=== PATIENT | female | born 1980 ===

== ENCOUNTER 2024-08-30 14:02 | Inpatient (IN) | payer OTHER ==
[~2024-08-30] VITALS: Ht 160 cm; Wt 82.7 kg
[2024-08-30 15:14] LABS: BASOPHILS % (AUTO) 0 % (0-1); EOSINOPHILS % (AUTO) 0.2 % (0-6); HEMATOCRIT 44.3 % (35.0-45.0); HEMOGLOBIN 15.3 g/dl (12.0-16.0); LYMPHOCYTES # (AUTO) 1.1 X10'3 (1.1-4.8); LYMPHOCYTES % (AUTO) 7.1 % (21-51); MEAN CORPUSCULAR HEMOGLOBIN 30.1 PG (27.0-31.0); MEAN CORPUSCULAR HGB CONC 34.6 g/dL (33.0-36.5); MEAN CORPUSCULAR VOLUME 86.8 FL (78-98); MONOCYTES # (AUTO) 0.8 X10'3 (0-0.9); MONOCYTES % (AUTO) 5.2 % (2-12); NEUTROPHILS # (AUTO) 13.7 X10'3 (1.8-7.7); NEUTROPHILS % (AUTO) 87.5 % (42-75); PLATELET COUNT 376 X10'3 (140-440); RED CELL DISTRIBUTION WIDTH 17.1 % (11.5-14.5); WHITE BLOOD COUNT 15.7 X10'3 (4.5-11.0)
[2024-08-30 15:24] LABS: ALANINE AMINOTRANSFERASE 8 U/L (12-78); ALBUMIN 2.6 G/DL (3.4-5.0); ALBUMIN/GLOBULIN RATIO 0.5 (1.1-1.5); ALKALINE PHOSPHATASE 80 IU/L (46-116); ANION GAP 10 (8-16); ASPARTATE AMINO TRANSFERASE 10 U/L (10-37); BILIRUBIN,TOTAL 0.7 MG/DL (0.1-1.0); BLOOD UREA NITROGEN 25 MG/DL (7-18); BUN/CREATININE RATIO 27.5 (10.0-20.0); CALCIUM 9.7 MG/DL (8.5-10.1); CHLORIDE 89 MMOL/L (99-107); CREATININE 0.91 MG/DL (0.40-0.90); GLUCOSE 94 MG/DL (70-104); LIPASE 31 U/L (16-77); POTASSIUM 3.2 MMOL/L (3.5-5.1); SODIUM 124 MMOL/L (135-145); TOTAL CARBON DIOXIDE 25.4 MMOL/L (24-32); TOTAL PROTEIN 7.7 G/DL (6.4-8.2); eCRCL 66 ML/MIN; eGFR 67 ML/MIN
[2024-08-30] MEDS: polyethylene glycol 3350 17gm powd pack PO STA (15:40)
[2024-08-30] MEDS: sennosides/docusate sodium tablet PO STA (15:41)
[2024-08-30] MEDS: ondansetron/PF 4mg/2ml inj IV STA (15:43)
[2024-08-30 16:04] LABS: ANISOCYTOSIS 1+; PLATELET ESTIMATE NORMAL
[2024-08-30] MEDS ORDERED: iohexol 300mg/ml 100ml inj. ONE (16:05)
[2024-08-30 16:06] LABS: SCHISTOCYTES FEW
[2024-08-30 16:07] LABS: LARGE PLATELETS FEW
[2024-08-30 16:35] LABS: URINE HCG NEGATIVE (NEG)
[2024-08-30 16:44] LABS: BILIRUBIN,URINE SMALL (Neg); CLARITY,URINE CLEAR (Clear); COLOR,URINE YELLOW (Yellow); GLUCOSE, URINE NEGATIVE (Neg); KETONES,URINE >=80 mg/dl (Neg); LEUKOCYTE ESTERASE ,URINE NEGATIVE (Neg); NITRITES, URINE NEGATIVE (Neg); OCCULT BLOOD,URINE LARGE (Neg); PH,URINE 6.5 (4.8-8.0); PROTEIN,URINE 30 mg/dl (Neg)
[2024-08-30 16:45] LABS: UA COLLECTION TYPE CLN CATCH MIDSTREAM
[2024-08-30 17:01] LABS: WBC,URINE 0-4 /HPF (0-4)
[2024-08-30 17:02] LABS: BACTERIA,URINE 1+ /HPF (Neg); MUCUS STRANDS FEW /LPF (Neg); SQUAMOUS EPITHELIAL CELL,UR MANY /LPF (FEW); TRANSITIONAL EPI CELLS,URINE FEW /HPF
[2024-08-30 17:03] LABS: WAXY CASTS,URINE 0-3 /LPF (NEGATIVE)
[2024-08-30 17:04] LABS: RENAL CELLS, URINE MOD /HPF
[2024-08-30] MEDS: morphine 4 MG/ML inj SYRINge IV STA (18:52)
[2024-08-30] MEDS: piperacillin/tazo 3.375gm/50ml 50 ML IV SCH (18:53)
[2024-08-30] MEDS: normal saline 1000ml 1,000 ML IV STA (19:34)
[2024-08-30] MEDS ORDERED: magnesium Cl slow-release 64mg tablet PO PRN (20:00)
[2024-08-30] MEDS ORDERED: magnesium sulf-water 2g/50mL 50 ML IV PRN (20:00)
[2024-08-30] MEDS ORDERED: mag hydrox/Alum hydrox/simeth 30ml oral suspension PO PRN (20:00)
[2024-08-30] MEDS: K and/or MAG REPLACEMENT MC SCH (20:00)
[2024-08-30] MEDS: docusate sod 100mg capsule PO SCH (20:00)
[2024-08-30] MEDS ORDERED: magnesium hydroxide 30ml (MOM) UD suspension PO PRN (20:00)
[2024-08-30] MEDS ORDERED: potassium Cl 20 mEq SR tablet PO PRN (20:00)
[2024-08-30] MEDS ORDERED: morphine 2 MG/ML inj. syringe IV PRN (20:00)
[2024-08-30] MEDS ORDERED: acetaminophen 325mg tablet PO PRN (20:00)
[2024-08-30] MEDS ORDERED: magnesium sulf-water 4G/100mL 100 ML IV PRN (20:00)
[2024-08-30 20:42] LABS: HEMOGLOBIN A1C 4.8 % (4.5-6.2)
[2024-08-30] MEDS: potassium Cl 20 mEq SR tablet PO PRN (20:57)
[2024-08-30] MEDS: normal saline 1000ml 1,000 ML IV SCH (21:01)
[2024-08-30] MEDS: ondansetron/PF 4mg/2ml inj IV PRN (21:46)
[2024-08-31] VITALS (25 sets, daily range): BP systolic 105–133; BP diastolic 60–95; PULSE 82–139; RESP 13–31; TEMP 97.6–98.7; O2SAT 90–100
[2024-08-31] MEDS ORDERED: piperacillin/tazo 3.375gm/50ml 50 ML IV SCH
[2024-08-31] MEDS: normal saline 1000ml 1,000 ML IV STA (02:01)
[2024-08-31] MEDS: morphine 2 MG/ML inj. syringe IV PRN ×2 (02:02→12:01)
[2024-08-31 02:44] LABS: BASOPHILS % (AUTO) 0.1 % (0-1); EOSINOPHILS % (AUTO) 0.2 % (0-6); HEMATOCRIT 40.3 % (35.0-45.0); HEMOGLOBIN 14.1 g/dl (12.0-16.0); LYMPHOCYTES # (AUTO) 0.7 X10'3 (1.1-4.8); LYMPHOCYTES % (AUTO) 6.4 % (21-51); MEAN CORPUSCULAR HEMOGLOBIN 30.8 PG (27.0-31.0); MEAN PLATELET VOLUME 7.9 FL (7.4-10.4); MONOCYTES # (AUTO) 0.8 X10'3 (0-0.9); MONOCYTES % (AUTO) 7.5 % (2-12); NEUTROPHILS # (AUTO) 9.2 X10'3 (1.8-7.7); NEUTROPHILS % (AUTO) 85.8 % (42-75); PLATELET COUNT 364 X10'3 (140-440); RED BLOOD COUNT 4.58 X10'6 (4.20-5.60); RED CELL DISTRIBUTION WIDTH 16.7 % (11.5-14.5); WHITE BLOOD COUNT 10.7 X10'3 (4.5-11.0)
[2024-08-31 02:56] LABS: ALBUMIN 2.1 G/DL (3.4-5.0); ANION GAP 10 (8-16); BLOOD UREA NITROGEN 21 MG/DL (7-18); BUN/CREATININE RATIO 23.9 (10.0-20.0); CALCIUM 8.3 MG/DL (8.5-10.1); CHLORIDE 95 MMOL/L (99-107); CHOL/HDL RATIO 6.6 (0.00-4.99); CHOLESTEROL 186 MG/DL (0-200); CREATININE 0.88 MG/DL (0.40-0.90); GLUCOSE 98 MG/DL (70-104); HDL CHOLESTEROL 28 MG/DL (35-60); LDL CHOLESTEROL 121 MG/DL (50-100); MAGNESIUM 2.7 MG/DL (1.5-2.4); POTASSIUM 3.3 MMOL/L (3.5-5.1); SODIUM 128 MMOL/L (135-145); TOTAL CARBON DIOXIDE 22.9 MMOL/L (24-32); TRIGLYCERIDES 181 MG/DL (20-135); eCRCL 68 ML/MIN; eGFR 70 ML/MIN
[2024-08-31] MEDS ORDERED: magnesium Cl slow-release 64mg tablet PO PRN (03:25)
[2024-08-31] MEDS ORDERED: potassium Cl 20 mEq SR tablet PO PRN ×2 (03:25)
[2024-08-31] MEDS ORDERED: magnesium sulf-water 2g/50mL 50 ML IV PRN (03:25)
[2024-08-31] MEDS ORDERED: magnesium sulf-water 4G/100mL 100 ML IV PRN (03:25)
[2024-08-31] MEDS: potassium Cl 40MEQ/1/2NS 520ml 520 ML IV PRN (04:29)
[2024-08-31] MEDS ORDERED: K and/or MAG REPLACEMENT MC SCH (08:00)
[2024-08-31 09:08] LABS: ISTAT CREATININE 0.9 mg/dL (0.6-1.1); ISTAT IONIZED CALCIUM 1.14 mmol/L (1.03-1.32); ISTAT K 4.1 mmol/L (3.5-5.1); POC BUN/CREATININE RATIO 22.2 (6.6-38.0)
[2024-08-31] MEDS ORDERED: BUPIVAcaine 2.5mg/ml inj 50ml vial (contains preservative) ONE (09:10)
[2024-08-31] MEDS ORDERED: sevoflurane 250ml liquid IH ONE (09:24)
[2024-08-31] MEDS ORDERED: morphine 4 MG/ML inj SYRINge IV PRN (09:25)
[2024-08-31] MEDS ORDERED: meperidine/PF 25mg/ml syringe IV PRN ×2 (09:25)
[2024-08-31] MEDS ORDERED: proCHLORperazine 10 MG/2 ml inj IV PRN (09:25)
[2024-08-31] MEDS ORDERED: ondansetron/PF 4mg/2ml inj IV PRN (09:25)
[2024-08-31] MEDS: ringers solution, lacted 1,000 ML IV SCH (09:25)
[2024-08-31] MEDS ORDERED: midazolam 1 mg/ML 2ml injection ONE (09:28)
[2024-08-31] MEDS ORDERED: rocuronium 10mg/ml inj IV ONE (09:28)
[2024-08-31] MEDS ORDERED: propofol inj 20 ML IV ONE (09:28)
[2024-08-31] MEDS ORDERED: fentaNYL/PF 50MCG/1 ML 2ML syringe ONE (09:28)
[2024-08-31] MEDS ORDERED: ceFOXitin 1000 MG inj ONE ×2 (09:37)
[2024-08-31] MEDS ORDERED: acetaminophen 1,000mg/100ml IV 100 ML IV ONE (10:25)
[2024-08-31] MEDS ORDERED: albumin (Human) 5% 250ml 250 ML IV ONE (10:37)
[2024-08-31] MEDS ORDERED: glycopyrrolate 0.2mg/ml inj ONE (11:05)
[2024-08-31] MEDS ORDERED: neostigmine methylsulfate 1 MG/ML 10ml vial ONE (11:05)
[2024-08-31] MEDS ORDERED: HYDROmorphone inj. 0.5 MG/0.5 ML DISP.SYRIN IV PRN (11:25)
[2024-08-31] MEDS ORDERED: ketorolac trometh 15mg/ml vial 15 MG/ML ML IV PRN (11:25)
[2024-08-31] MEDS ORDERED: ketorolac trometh 30MG/ML vial 30 MG/ML VIAL IV PRN (11:27)
[2024-08-31] MEDS ORDERED: naloxone 0.4 mg/ml inj IV PRN (11:40)
[2024-08-31] MEDS ORDERED: HYDROmorph/NS 0.2 mg/ml PCA 100 ML IV SCH (11:40)
[2024-08-31] MEDS: meperidine/PF 25mg/ml syringe IV PRN (11:48)
[2024-08-31] MEDS: HYDROmorph/NS 0.2 mg/ml PCA 100 ML IV SCH (12:31)
[2024-08-31] MEDS: piperacillin/tazo 3.375gm/50ml 50 ML IV SCH (12:57)
[2024-08-31] MEDS: FLU VACC TS2024-25(6MOS UP)/PF 45 MCG/0.5 ML SYRINGE IMVAC ONE (17:05)
[2024-08-31] MEDS: vancomycin inj 1,250 MG in normal saline 250ml IV soln 250 ML IV SCH (20:05)
[2024-09-01 02:00] VITALS: BP 136/75; PULSE 94; RESP 15; TEMP 98.7; O2SAT 96
[2024-09-01] MEDS ORDERED: LEVO175T7 PO (04:35)
[2024-09-01] MEDS ORDERED: LIOT5TAB10 PO (04:35)
[2024-09-01 05:58] LABS: BASOPHILS % (AUTO) 0.1 % (0-1); EOSINOPHILS % (AUTO) 0.1 % (0-6); HEMATOCRIT 41.7 % (35.0-45.0); HEMOGLOBIN 14.3 g/dl (12.0-16.0); LYMPHOCYTES # (AUTO) 1.1 X10'3 (1.1-4.8); LYMPHOCYTES % (AUTO) 10.7 % (21-51); MEAN CORPUSCULAR HEMOGLOBIN 30.3 PG (27.0-31.0); MEAN CORPUSCULAR HGB CONC 34.2 g/dL (33.0-36.5); MEAN CORPUSCULAR VOLUME 88.5 FL (78-98); MEAN PLATELET VOLUME 7.6 FL (7.4-10.4); MONOCYTES % (AUTO) 9.8 % (2-12); NEUTROPHILS # (AUTO) 8.4 X10'3 (1.8-7.7); NEUTROPHILS % (AUTO) 79.3 % (42-75); PLATELET COUNT 406 X10'3 (140-440); RED BLOOD COUNT 4.71 X10'6 (4.20-5.60); RED CELL DISTRIBUTION WIDTH 17.7 % (11.5-14.5); WHITE BLOOD COUNT 10.6 X10'3 (4.5-11.0)
[2024-09-01 06:00] VITALS: BP 135/77; PULSE 102; RESP 13; TEMP 97.4; O2SAT 97
[2024-09-01 06:16] LABS: ALBUMIN 1.8 G/DL (3.4-5.0); ANION GAP 13 (8-16); BLOOD UREA NITROGEN 15 MG/DL (7-18); BUN/CREATININE RATIO 21.7 (10.0-20.0); CALCIUM 7.6 MG/DL (8.5-10.1); CHLORIDE 104 MMOL/L (99-107); CREATININE 0.69 MG/DL (0.40-0.90); GLUCOSE 97 MG/DL (70-104); MAGNESIUM 2.3 MG/DL (1.5-2.4); SODIUM 138 MMOL/L (135-145); TOTAL CARBON DIOXIDE 21.1 MMOL/L (24-32); eCRCL 87 ML/MIN; eGFR > 90 ML/MIN
[2024-09-01] MEDS: nicotine 21mg patch - 24 hr TD SCH (09:06)
[2024-09-01 09:16] LABS: ANISOCYTOSIS 1+; PLATELET ESTIMATE NORMAL; TOTAL CELLS COUNTED 100
[2024-09-01 10:00] VITALS: BP 114/67; PULSE 103; RESP 19; TEMP 97.5; O2SAT 93
[2024-09-01 18:00] VITALS: BP 132/75; PULSE 103; RESP 18; TEMP 97; O2SAT 97
[2024-09-01 20:00] VITALS: RESP 18; O2SAT 97
[2024-09-01] MEDS ORDERED: VANCOMYCIN/WATER FOR INJ (PEG) 1.25GM/250 ML IVPB IV SCH (20:00)
[2024-09-01] MEDS: enoxaparin 40mg/0.4ml syringe SUBCUT SCH (20:48)
[2024-09-01 22:00] VITALS: BP 116/76; PULSE 94; RESP 16; TEMP 96.8; O2SAT 93
[2024-09-02 06:34] VITALS: BP 130/76; PULSE 83; RESP 18; TEMP 96.5; O2SAT 94
[2024-09-02] MEDS: NORMAL SALINE IV SCH (07:39)
[2024-09-02] MEDS: VANCOMYCIN IV SCH (07:39)
[2024-09-02 07:43] LABS: BASOPHILS % (AUTO) 0.2 % (0-1); EOSINOPHILS # (AUTO) 0.1 X10'3 (0-0.9); EOSINOPHILS % (AUTO) 1.2 % (0-6); HEMATOCRIT 36.4 % (35.0-45.0); HEMOGLOBIN 12.3 g/dl (12.0-16.0); LYMPHOCYTES # (AUTO) 1.7 X10'3 (1.1-4.8); LYMPHOCYTES % (AUTO) 18.8 % (21-51); MEAN CORPUSCULAR HEMOGLOBIN 30.3 PG (27.0-31.0); MEAN CORPUSCULAR HGB CONC 33.9 g/dL (33.0-36.5); MEAN CORPUSCULAR VOLUME 89.3 FL (78-98); MEAN PLATELET VOLUME 7.3 FL (7.4-10.4); MONOCYTES # (AUTO) 0.6 X10'3 (0-0.9); MONOCYTES % (AUTO) 6.5 % (2-12); NEUTROPHILS # (AUTO) 6.6 X10'3 (1.8-7.7); NEUTROPHILS % (AUTO) 73.3 % (42-75); PLATELET COUNT 388 X10'3 (140-440); RED BLOOD COUNT 4.08 X10'6 (4.20-5.60); RED CELL DISTRIBUTION WIDTH 17.9 % (11.5-14.5); WHITE BLOOD COUNT 8.9 X10'3 (4.5-11.0)
[2024-09-02] MEDS: VANCOMYCIN LEVEL IV ONE (07:44)
[2024-09-02 08:00] VITALS: RESP 18; O2SAT 94
[2024-09-02 08:29] LABS: ALBUMIN 1.7 G/DL (3.4-5.0); ANION GAP 7 (8-16); BLOOD UREA NITROGEN 12 MG/DL (7-18); BUN/CREATININE RATIO 16.2 (10.0-20.0); CALCIUM 7.3 MG/DL (8.5-10.1); CHLORIDE 105 MMOL/L (99-107); CREATININE 0.74 MG/DL (0.40-0.90); FREE T4 (FREE THYROXINE) 0.82 NG/DL (0.73-1.40); GLUCOSE 84 MG/DL (70-104); MAGNESIUM 2.7 MG/DL (1.5-2.4); POTASSIUM 3.2 MMOL/L (3.5-5.1); SODIUM 136 MMOL/L (135-145); THYROID STIMULATING HORMONE 14.74 ulU/ml (0.34-4.50); TOTAL CARBON DIOXIDE 23.9 MMOL/L (24-32); eCRCL 81 ML/MIN; eGFR 86 ML/MIN
[2024-09-02 08:36] LABS: VANCOMYCIN,TROUGH 2.8 ug/mL (10.0-20.0)
[2024-09-02 09:16] LABS: TOTAL CELLS COUNTED 100
[2024-09-02 09:17] LABS: ANISOCYTOSIS 1+; PLATELET ESTIMATE NORMAL
[2024-09-02 10:00] VITALS: BP 137/83; PULSE 84; RESP 16; TEMP 97.6; O2SAT 96
[2024-09-02 18:00] VITALS: BP 146/83; PULSE 86; RESP 14; TEMP 97.8; O2SAT 96
[2024-09-02] MEDS: enoxaparin 40mg/0.4ml syringe SUBCUT SCH (21:36)
[2024-09-02 22:00] VITALS: BP 134/80; PULSE 79; RESP 18; TEMP 96.9; O2SAT 97
[2024-09-02] MEDS: potassium Cl 40MEQ/1/2NS 520ml 520 ML IV PRN (22:55)
[2024-09-03 06:02] LABS: BASOPHILS % (AUTO) 0.2 % (0-1); EOSINOPHILS # (AUTO) 0.1 X10'3 (0-0.9); EOSINOPHILS % (AUTO) 1.5 % (0-6); HEMATOCRIT 36.5 % (35.0-45.0); HEMOGLOBIN 12.6 g/dl (12.0-16.0); LYMPHOCYTES # (AUTO) 1.6 X10'3 (1.1-4.8); LYMPHOCYTES % (AUTO) 18.6 % (21-51); MEAN CORPUSCULAR HEMOGLOBIN 30.4 PG (27.0-31.0); MEAN CORPUSCULAR HGB CONC 34.4 g/dL (33.0-36.5); MEAN CORPUSCULAR VOLUME 88.3 FL (78-98); MEAN PLATELET VOLUME 7.1 FL (7.4-10.4); MONOCYTES # (AUTO) 0.5 X10'3 (0-0.9); MONOCYTES % (AUTO) 5.8 % (2-12); NEUTROPHILS # (AUTO) 6.5 X10'3 (1.8-7.7); NEUTROPHILS % (AUTO) 73.9 % (42-75); PLATELET COUNT 408 X10'3 (140-440); RED BLOOD COUNT 4.13 X10'6 (4.20-5.60); WHITE BLOOD COUNT 8.8 X10'3 (4.5-11.0)
[2024-09-03 06:15] LABS: ALBUMIN 1.8 G/DL (3.4-5.0); ANION GAP 9 (8-16); BLOOD UREA NITROGEN 9 MG/DL (7-18); BUN/CREATININE RATIO 15.3 (10.0-20.0); CALCIUM 7.7 MG/DL (8.5-10.1); CHLORIDE 104 MMOL/L (99-107); CREATININE 0.59 MG/DL (0.40-0.90); GLUCOSE 85 MG/DL (70-104); MAGNESIUM 2.3 MG/DL (1.5-2.4); POTASSIUM 3.7 MMOL/L (3.5-5.1); SODIUM 139 MMOL/L (135-145); TOTAL CARBON DIOXIDE 25.8 MMOL/L (24-32); eCRCL 102 ML/MIN; eGFR > 90 ML/MIN
[2024-09-03 06:38] VITALS: BP 151/88; PULSE 83; RESP 17; TEMP 97.7; O2SAT 93
[2024-09-03 08:00] VITALS: RESP 18; O2SAT 94
[2024-09-03 10:00] VITALS: BP 143/79; PULSE 72; RESP 20; TEMP 98; O2SAT 97
[2024-09-03] MEDS: PCA WASTE DOCUMENTATION 1 MG ML MC SCH (10:10)
[2024-09-03] MEDS ORDERED: HYDROcodone/acetaminophen 5mg/325mg tablet PO PRN (10:25)
[2024-09-03 18:00] VITALS: BP 151/85; PULSE 73; RESP 18; TEMP 97.8; O2SAT 98
[2024-09-03] MEDS: VANCOMYCIN LEVEL IV ONE (20:19)
[2024-09-03 22:00] VITALS: BP 160/79; PULSE 76; RESP 16; TEMP 97.3; O2SAT 97
[2024-09-04 06:00] VITALS: BP 147/55; PULSE 82; RESP 17; TEMP 98; O2SAT 94
[2024-09-04 08:00] VITALS: RESP 18; O2SAT 97
[2024-09-04 08:20] LABS: BASOPHILS % (AUTO) 0.5 % (0-1); EOSINOPHILS # (AUTO) 0.1 X10'3 (0-0.9); EOSINOPHILS % (AUTO) 1.4 % (0-6); HEMATOCRIT 38.6 % (35.0-45.0); HEMOGLOBIN 13.3 g/dl (12.0-16.0); LYMPHOCYTES # (AUTO) 1.7 X10'3 (1.1-4.8); LYMPHOCYTES % (AUTO) 18.4 % (21-51); MEAN CORPUSCULAR HEMOGLOBIN 30.4 PG (27.0-31.0); MEAN CORPUSCULAR HGB CONC 34.5 g/dL (33.0-36.5); MEAN CORPUSCULAR VOLUME 88.1 FL (78-98); MEAN PLATELET VOLUME 7.2 FL (7.4-10.4); MONOCYTES # (AUTO) 0.7 X10'3 (0-0.9); MONOCYTES % (AUTO) 7.4 % (2-12); NEUTROPHILS # (AUTO) 6.7 X10'3 (1.8-7.7); NEUTROPHILS % (AUTO) 72.3 % (42-75); PLATELET COUNT 435 X10'3 (140-440); RED BLOOD COUNT 4.39 X10'6 (4.20-5.60); RED CELL DISTRIBUTION WIDTH 17.4 % (11.5-14.5); WHITE BLOOD COUNT 9.3 X10'3 (4.5-11.0)
[2024-09-04 09:12] LABS: ALBUMIN 1.7 G/DL (3.4-5.0); ANION GAP 10 (8-16); BLOOD UREA NITROGEN 5 MG/DL (7-18); BUN/CREATININE RATIO 8.5 (10.0-20.0); CHLORIDE 104 MMOL/L (99-107); CREATININE 0.59 MG/DL (0.40-0.90); GLUCOSE 80 MG/DL (70-104); POTASSIUM 3.2 MMOL/L (3.5-5.1); SODIUM 139 MMOL/L (135-145); eCRCL 102 ML/MIN; eGFR > 90 ML/MIN
[2024-09-04] MEDS ORDERED: potassium Cl 20 mEq SR tablet PO PRN ×2 (09:35)
[2024-09-04] MEDS ORDERED: magnesium sulf-water 4G/100mL 100 ML IV PRN (09:35)
[2024-09-04] MEDS ORDERED: magnesium sulf-water 2g/50mL 50 ML IV PRN (09:35)
[2024-09-04 10:00] VITALS: BP 142/81; PULSE 65; RESP 16; TEMP 98.5; O2SAT 96
[2024-09-04 10:19] LABS: MAGNESIUM 2.1 MG/DL (1.5-2.4)
[2024-09-04] MEDS: potassium Cl 40MEQ/1/2NS 520ml 520 ML IV PRN (10:41)
[2024-09-04 12:00] LABS: ANISOCYTOSIS 1+; PLATELET ESTIMATE NORMAL; TOTAL CELLS COUNTED 100
[2024-09-04 18:00] VITALS: BP 146/77; PULSE 68; RESP 16; TEMP 97.4; O2SAT 96
[2024-09-04] MEDS: amLODIPine 5mg tablet PO ONE (18:40)
[2024-09-04] MEDS: K and/or MAG REPLACEMENT MC SCH (19:47)
[2024-09-04 22:00] VITALS: BP 133/76; PULSE 83; RESP 19; TEMP 98; O2SAT 95
[2024-09-05] MEDS: vancomycin/NS 1 GM ADD-VANTAGE 250 ML IV SCH (01:08)
[2024-09-05] MEDS: amLODIPine 5mg tablet PO SCH (06:53)
[2024-09-05] MEDS ORDERED: CIPR-202 PO ×2 (07:41→10:19)
[2024-09-05] MEDS ORDERED: ASPI81TA52 PO ×2 (07:41→10:19)
[2024-09-05] MEDS ORDERED: CLIN-97 PO ×2 (07:41→10:19)
[2024-09-05 08:00] VITALS: RESP 16; O2SAT 96
[2024-09-05] MEDS ORDERED: VANCOMYCIN 1,500MG in normal saline IV soln 300 ML IV SCH (08:00)
[2024-09-05 09:18] LABS: POTASSIUM 3.5 MMOL/L (3.5-5.1)
[2024-09-06] MEDS ORDERED: VANCOMYCIN LEVEL IV ONE (07:30)
== END 2024-09-05 10:55 | disposition home or self-care (01) | DRG 336 ==
LOC: ER 14:04 → UNDOADMIN 19:58 → ED HOLD 19:58 → PACU 08-31 11:01 → ORTHO 4S 08-31 16:00
PROVIDERS: ADMIT Internal Medicine Critical Care Medicine; ATTEND Family Medicine
PROC: BW211ZZ Computerized Tomography (CT Scan) of Abdomen and Pelvis using Low Osmolar Contrast (ICD-10-PCS; 2024-08-30)
PROC: 0DTJ0ZZ Resection of Appendix, Open Approach (ICD-10-PCS; 2024-08-31)
PROC: 0D9670Z Drainage of Stomach with Drainage Device, Via Natural or Artificial Opening (ICD-10-PCS; 2024-08-31)
PROC: 0DN84ZZ Release Small Intestine, Percutaneous Endoscopic Approach (ICD-10-PCS; principal; 2024-08-31 09:24)
DX: K35.32 Acute appendicitis with perforation, localized peritonitis, and gangrene, without abscess (principal); E87.1 Hypo-osmolality and hyponatremia; K56.50 Intestinal adhesions [bands], unspecified as to partial versus complete obstruction; E03.9 Hypothyroidism, unspecified; E87.6 Hypokalemia; E87.8 Other disorders of electrolyte and fluid balance, not elsewhere classified; E06.9 Thyroiditis, unspecified; Z53.31 Laparoscopic surgical procedure converted to open procedure; Z87.891 Personal history of nicotine dependence; Z98.891 History of uterine scar from previous surgery; Z88.2 Allergy status to sulfonamides
CPT/HCPCS: 96374; 96375; 99285; Z7506; Z7508; 36415; 71045; 74177; 80047; 80048; 80053; 80061; 80202; 81001; 81025; 82948; 83036; 83605; 83690; 83735; 84132; 84145; 84439; 84443; 85007; 85008; 85025; 87070; 87075; 87076; 87077; 87081; 87102; 87185; 87186; 90686; 93005; 97110; 97116; 97161; 97530; A4215; A4314; A4615; A4618; A6253; A6258; A6260; A6402; A6407; A6446; A6449; G0378; J0131; J0694; J1100; J1171; J1650; J2175; J2250; J2270; J2405; J2543; J2704; J2710; J3010; J3370; J3480; J3490; J7030; J7050; J7120; P9045; Q9967